=== PATIENT | female | born 1955 | race Caucasian/White ===

== ENCOUNTER 2024-01-22 06:11 | Day surgery (SDC) | payer OTHER ==
[2024-01-17 12:40] VITALS: BMI 24.7
[2024-01-22] MEDS ORDERED: ceFAZolin SODIUM 1 GM VIAL ONE ×2 (07:10→07:18)
[2024-01-22] MEDS ORDERED: ERYTHROMYCIN 0.5% OPHTHALMIC OINTMENT 3.5 GM TUBE ONE (07:10)
[2024-01-22] MEDS ORDERED: BUPIVACAINE HCL/PF 0.5% (5MG/ML) 10 ML VIAL ONE (07:11)
[2024-01-22] MEDS ORDERED: POVIDONE-IODINE 5% OPHTHALMIC PREP 30 ML SOLUTION ONE (07:11)
[2024-01-22] MEDS ORDERED: LIDOCAINE 1%/EPI 1:100000 (20 ML MULTI DOSE VIAL) ONE (07:11)
[2024-01-22] MEDS ORDERED: TETRACAINE 0.5% OPHTH SOLN 2 ML BOTTLE ONE (07:11)
[2024-01-22] MEDS ORDERED: PROPOFOL 40 ML ONE (07:18)
[2024-01-22] MEDS ORDERED: DEXAMETHASONE SOD PHOSPHATE 4 MG/1 ML VIAL ONE (07:18)
[2024-01-22] MEDS ORDERED: ONDANSETRON 4 MG/2 ML VIAL ONE (07:18)
[2024-01-22] MEDS ORDERED: MIDAZOLAM HCL 2 MG/2 ML SINGLE DOSE VIAL ONE (07:18)
[2024-01-22] MEDS ORDERED: PROPOFOL 20 ML ONE (08:26)
[2024-01-22] MEDS ORDERED: ONDANSETRON 4 MG/2 ML VIAL IVPUSH PRN (09:08)
[2024-01-22] MEDS ORDERED: oxyCODONE HCL 5 MG TABLET PO PRN (09:08)
[2024-01-22] MEDS ORDERED: LACTATED RINGERS SOLUTION 1,000 ML IV SCH (09:15)
[2024-01-22 10:18] VITALS: PULSE 16; TEMP 96.9
[2024-01-22 10:22] VITALS: BP 140/85; RESP 68
== END 2024-01-22 10:22 | disposition home or self-care (01) ==
LOC: FASU 06:11
PROVIDERS: ATTEND Ophthalmology
PROC: 08URX7Z Supplement Left Lower Eyelid with Autologous Tissue Substitute, External Approach (ICD-10-PCS; 2024-01-22)
PROC: 08BR0ZZ Excision of Left Lower Eyelid, Open Approach (ICD-10-PCS; principal; 2024-01-22 08:02)
DX: C44.1292 Squamous cell carcinoma of skin of left lower eyelid, including canthus (principal)
CPT/HCPCS: 94760